=== PATIENT | male | born 1975 | race Caucasian/White ===

== ENCOUNTER 2019-09-23 19:33 | Emergency (ER) | payer BC, OTHER ==
[2019-09-23] MEDS ORDERED: Fluorescein Opthalmic Strip ONE (20:02)
[2019-09-23] MEDS ORDERED: Proparacaine 0.5% Opth 15 ML BOT ONE ×2 (20:03→20:05)
== END 2019-09-23 21:35 | disposition home or self-care (01) ==
LOC: ERS 19:33
DX: H11.31 Conjunctival hemorrhage, right eye (principal); E11.40 Type 2 diabetes mellitus with diabetic neuropathy, unspecified; Z79.899 Other long term (current) drug therapy; Z79.82 Long term (current) use of aspirin; Z79.84 Long term (current) use of oral hypoglycemic drugs
CPT/HCPCS: 99283